=== PATIENT | female | born 1995 | race African-American/Black ===

== ENCOUNTER 2022-03-02 06:50 | Emergency (ER) | payer SELFPAY ==
[~2022-03-02] VITALS: Ht 165.1 cm; Wt 65.0 kg
[2022-03-02 06:53] VITALS: BP 39/84
[2022-03-02] MEDS ORDERED: SODIUM CHLORIDE 0.9% 1,000 ML IV ONE (07:15)
[2022-03-02 08:31] LABS: BASOPHILS % 0.5 % (0.0-2.0); EOSINOPHILS % 1.3 % (0.0-5.0); HEMATOCRIT. 42.7 % (36.0-48.0); HEMOGLOBIN. 14.1 g/dL (12.0-16.0); LYMPHOCYTES % 20.3 % (20.0-50.0); MEAN CORPUSCULAR HEMOGLOBIN 29.1 pg (28.0-32.0); MEAN CORPUSCULAR VOLUME 87.9 fL (81.0-99.0); MEAN PLATELET VOLUME 8.6 fl (7.4-10.4); MONOCYTES % 5.2 % (2.0-8.0); NEUTROPHILS % 72.7 % (40.0-76.0); PLATELET 385 x1000/uL (130-400); RED BLOOD CELL COUNT 4.86 mill/uL (4.2-5.4); RED CELL DISTRIBUTION WIDTH 12.8 % (11.6-14.6)
[2022-03-02 08:39] LABS: CHLORIDE 103 mEq/L (98-107)
[2022-03-02 08:50] LABS: BETA HYDROXYBUTYRATE 0.4 mMol/L (0.0-0.3)
[2022-03-02 08:52] LABS: HCG SCREEN NEGATIVE
[2022-03-02] MEDS ORDERED: INSULIN REGULAR (HUMULIN R) UD 100 UNITS/ML SYR SUBCUT ONE (09:00)
[2022-03-02] MEDS ORDERED: INSULIN REGULAR (HUMULIN R) 300UNITS/3ML VIAL SUBCUT NR (09:15)
== END 2022-03-02 10:02 | disposition home or self-care (01) ==
LOC: ER 06:50
DX: E11.65 Type 2 diabetes mellitus with hyperglycemia (principal); Z88.2 Allergy status to sulfonamides
CPT/HCPCS: 36415; 80053; 82010; 82962; 84703; 85025; 99283; J7030; J1815

== ENCOUNTER 2023-08-23 19:48 | Emergency (ER) | payer MEDICAID ==
[~2023-08-23] VITALS: Ht 152.4 cm; Wt 55.0 kg
[2023-08-23 19:53] VITALS: BP 114/81; O2SAT 100
[2023-08-23 19:54] VITALS: PULSE 86; RESP 13
[2023-08-23 21:16] LABS: CLARITY URINE CLEAR (CLEAR); COLOR URINE YELLOW (YELLOW); GLUCOSE URINE 3+ (NEGATIVE); KETONES URINE 1+ (NEGATIVE); LEUKOCYTE ESTERASE URINE NEGATIVE (NEGATIVE); NITRITE URINE NEGATIVE (NEGATIVE); OCCULT BLOOD URINE NEGATIVE (NEGATIVE); PH URINE 5.5 (4.5-8.0); PROTEIN URINE NEGATIVE (NEGATIVE); SPECIFIC GRAVITY URINE 1.049 (1.005-1.030); UROBILINOGEN URINE 0.2 E.U./dL (0.2-1.0)
[2023-08-23 21:19] LABS: CHLORIDE 99 mEq/L (98-107); POTASSIUM 3.7 mEq/L (3.5-5.1); SODIUM 134 mEq/L (136-145)
[2023-08-23 21:20] LABS: CARBON DIOXIDE 27 mEq/L (21-32)
[2023-08-23 21:21] LABS: CALCIUM 9.7 mg/dL (8.7-10.4)
[2023-08-23 21:24] LABS: BASOPHILS % 0.6 % (0.0-2.0); EOSINOPHILS % 0.6 % (0.0-5.0); HEMATOCRIT. 47.7 % (36.0-48.0); HEMOGLOBIN. 15.4 g/dL (12.0-16.0); LYMPHOCYTES % 42.9 % (20.0-50.0); MEAN CORPUSCULAR HEMOGLOBIN 28.4 pg (28.0-32.0); MEAN CORPUSCULAR HGB CONC 32.3 g/dL (31.0-37.0); MONOCYTES % 6.5 % (2.0-8.0); NEUTROPHILS % 49.4 % (40.0-76.0); RED BLOOD CELL COUNT 5.42 mill/uL (4.2-5.4); RED CELL DISTRIBUTION WIDTH 13.2 % (11.6-14.6); WHITE BLOOD COUNT 6.6 x1000/uL (4.5-11.0)
[2023-08-23 21:25] LABS: CREATININE 0.9 mg/dL (0.6-1.0); GLUCOSE 385 mg/dL (70-105)
[2023-08-23 21:26] LABS: UREA NITROGEN BLOOD 9 mg/dL (9-23)
[2023-08-23 21:27] LABS: DIFFERENTIAL COMMENT 1
[2023-08-23 21:39] LABS: BACTERIA URINE TRACE; RBC URINE 0-2 /hpf (0-2); SQUAMOUS EPITHELIAL CELL URINE 1+ /lpf (RARE/1+); WBC URINE 0-2 /hpf (0-2)
[2023-08-23 21:42] LABS: TROPONIN I HIGH SENSITIVITY < 4 ng/L (3.0-34)
[2023-08-23 21:55] LABS: MEAN PLATELET VOLUME 9.1 fl (7.4-10.4); PLATELET 295 x1000/uL (130-400)
[2023-08-23] MEDS ORDERED: SODIUM CHLORIDE 0.9% 1,000 ML IV ONE (22:15)
[2023-08-23] MEDS: SODIUM CHLORIDE 0.9% 1,000 ML IV ONE (22:15)
[2023-08-23 22:45] VITALS: TEMP 98.4
[2023-08-23] MEDS: ACETAMINOPHEN 325MG TABLET PO ONE (22:45)
[2023-08-23] MEDS: MAGNESIUM/ALUMINUM HYDROXIDE/SIMETHICONE 30ML UDC PO ONE (22:45)
== END 2023-08-24 01:28 | disposition home or self-care (01) ==
LOC: ER 19:48
DX: E11.65 Type 2 diabetes mellitus with hyperglycemia (principal); R51.9 Headache, unspecified; Z88.2 Allergy status to sulfonamides
CPT/HCPCS: 99283; 96360; 80048; 81003; 85025; 84484; 36415; J7030